=== PATIENT | female | born 1950 | race African-American/Black ===

== ENCOUNTER → 2017-06-18 | Outpatient (CLI) | payer OTHER ==
[~2017-06-18] MED LIST: ALLEGRA-D 12 H1 EAC1 PO; AMBEREN; LOW DOSE ASPIRI81 M1 PO; MINIPRIN81 MG PO; MULTIVITAMINS PO; NASONEX17 GM NS; TRAVATAN Z5 ML OP
== END ==
LOC: MRI 07:09
DX: M19.012 Primary osteoarthritis, left shoulder (principal); M19.011 Primary osteoarthritis, right shoulder; M75.92 Shoulder lesion, unspecified, left shoulder; M75.91 Shoulder lesion, unspecified, right shoulder; M75.52 Bursitis of left shoulder; M75.51 Bursitis of right shoulder